=== PATIENT | female | born 1975 | race Hispanic/Latino ===

== ENCOUNTER → 2023-07-01 | Emergency (ER) | payer SELFPAY ==
[~2023-07-01] MED LIST: CEFTRIAXONE 1000 MG/VIAL ONE; LORazepam 2 MG/ML VIAL ONE; MORPHINE 4 MG/ML SYR ONE; NA CHLORIDE 0.9% 1,000 ML ONE; PROMETHAZINE INJ 25 MG/ML AMP ONE; dexAMETHasone 10 MG/ML VIAL ONE
[2023-07-01 09:29] LABS: SARS-CoV-2 Antigen CONTROL BLUE LINE VIS/BG OK; SARS-CoV-2 Antigen Rapid Res Positive (Negative)
[2023-07-01 09:34] LABS: Absolute Lymphocytes (CBC) 1.1 K/uL (0.7-4.9); Absolute Monocytes 0.8 K/uL (0.1-1.3); Absolute Neutrophil 2.3 K/uL (1.8-8.0); Basophils % 0.5 % (0-1.3); Eosinophils % 0.6 % (0-4.4); Hematocrit 33.3 % (36.0-45.0); Hemoglobin 11.5 g/dL (12.0-15.0); Lymphocytes % 25.1 % (15.3-44.8); MCH 31.2 pg (27.0-35.0); MCHC 34.6 g/dL (32.0-36.0); MCV 90.3 fL (80-100); Monocytes % 19.2 % (3.3-12.3); Neutrophils % 54.6 % (41.7-73.7); Nucleated Red Blood Cells % 0.1 % (0-0); Platelets 257 thou/uL (152-406); RBC Red Blood Cell Count 3.68 M/uL (3.86-4.86); Red Cell Distribution Width 13.2 % (12.1-15.2)
[2023-07-01 09:46] LABS: Anion Gap 7.9 mEq/L (5.0-15.0); Potassium 3.9 mEq/L (3.5-5.1)
--- NOTE | 2023-07-01 09:59 | RAD REPORT ---
EXAM DESCRIPTION: RAD - Shoulder Right 2 View - 07/01/2023 9:47 am CLINICAL HISTORY: anterior dislocation COMPARISON: Shoulder Right 2 View dated 05/23/2010 FINDINGS/IMPRESSION: No acute fracture. No malalignment. No significant focal degenerative changes. Right shoulder arthroplasty .
--- NOTE | 2023-07-01 10:47 | RAD REPORT ---
EXAM DESCRIPTION: CT - Soft Tissue Neck W/Contr CLINICAL HISTORY: Swelling;Sore throat COMPARISON: No comparisons TECHNIQUE All CT scans are performed using dose optimization technique as appropriate and may includ e automated exposure control or mA/KV adjustment according to patient size. FINDINGS: Nasopharyngeal tissues are normal in appearance. Fossa Rosenmller are normal. 9 mm x 7 mm small right peritonsillar abscess. Tonsillar hypertrophy. No significant airway narrowing . Tongue base structures are normal. Epiglottis and aryepiglottic folds are normal. Piriform sinuses are well aerated. The vocal cords are normal in appearance. Salivary glands are normal in appearance. Upper lung anthony are clear. Included intracranial contents are unremarkable. Right shoulder arthroplasty. Bilateral breast prostheses. IMPRESSION: Small right peritonsillar abscess measuring under 1 cm. No significant airway narrowing.
--- NOTE | 2023-07-01 11:16 | EDPHYS ---
Physician Documentation [facility] Name: Zaida Enrique Age: 48 yrs Sex: Female : 1975 Arrival Date: 07/01/2023 Time: 08:11 Bed 7 Private MD: ED Physician Mushtaq Kelly HPI: 06/30 08:36 This 48 yrs old Female presents to ER via Ambulatory with complaints of Sore sb4 Throat. 08:36 The patient presents with sore throat. Patient presents with a sore throat x 2 weeks. sb4 She states that she does get tonsillitis recurrently and has been trying to manage it at home but is just getting worse. She states that now it is painful to open her mouth and her whole body hurts. She reports a subjective 105 fever. States taking Tylenol and Motrin without any relief in symptoms. 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 - Social history:: Smoking status: Patient denies any tobacco usage or history of. ROS: 08:36 Eyes: Negative for injury, pain, redness, and discharge, sb4 08:36 Constitutional: Positive for body aches, fever, 08:36 ENT: Positive for sore throat, 08:36 All other systems are negative, Exam: 08:36 Head/Face: Normocephalic, atraumatic. Eyes: Extra-ocular motions intact. Periorbital sb4 areas with no swelling, redness, or edema. Skin: Warm, dry with normal turgor. Normal color with no rashes, no lesions, and no evidence of cellulitis. MS/ Extremity: Pulses equal, no cyanosis. Neurovascular intact. Full, normal range of motion. Neuro: Awake and alert, GCS 15, oriented to person, place, time, and situation. Motor strength 5/5 in all extremities. Sensory grossly intact. 08:36 Constitutional: The patient appears alert, awake, obviously ill, 08:36 ENT: Posterior pharynx: Airway: normal, no evidence of obstruction, Tonsils: bilaterally enlarged, with erythema, no exudate, no ulcerations, Uvula: normal, 08:36 Neck: External neck: tenderness, of the right sternocleidomastoid and left sternocleidomastoid, Lymph nodes: lymphadenopathy is appreciated, anterior cervical nodes, Vital Signs: 08:31 BP 109 / 63; Pulse 99; Resp 18; Temp 98.5; Pulse Ox 98% on R/A; iw 11:13 BP 112 / 68; Pulse 88; Resp 15; Temp 98; Pulse Ox 99% ; ko1 MDM: 08:29 Patient medically screened. sb4 08:36 Differential diagnosis: epiglottitis, group A strep tonsillitis, influenza, laryngitis, sb4 peritonsillar abscess pharyngitis, tonsillitis. 09:40 ED course: [facility] patient yelling in her room. RN went in and found her on the floor. sb4 Patient states that she got nauseated, tried to get up, tripped on the IV tubing and fell onto her right shoulder. Anterior dislocation noted to right shoulder. Patient states that she has had a prior replacement and has had dislocations a few times before. Will obtain x-ray, consent for conscious sedation, and reduce shoulder. 10:11 ED course: xray does not reveal any dislocation of shoulder. patient pain out of sb4 proportion, very emotional. 11:14 Data reviewed: vital signs, nurses notes, lab test result(s), radiologic studies, I sb4 have discussed the patient's presentation/case with the attending Emergency Department Physician; and as a result, I will discharge patient. Care significantly affected by the following Social Determinants of Health: Poor access to healthcare and/or lack of insurance. Counseling: I had a detailed discussion with the patient and/or guardian regarding the historical points, exam findings, and any diagnostic results supporting the discharge/admit diagnosis, lab results, radiology results, the need for outpatient follow up, an ENT specialist, to return to the emergency department if symptoms worsen or persist or if there are any questions or concerns that arise at home. 11:29 ED course: patient visualized pushing open door with right arm. sb4 06/30 08:35 Order name: Strep; Complete Time: 09:34 sb4 06/30 08:35 Order name: Throat Culture sb4 06/30 08:35 Order name: SARS RAPID; Complete Time: 09:34 sb4 06/30 08:35 Order name: Flu; Complete Time: 09:34 sb4 06/30 08:35 Order name: CBC with Diff; Complete Time: 09:36 sb4 06/30 08:35 Order name: BMP; Complete Time: 09:46 sb4 06/30 08:35 Order name: Soft Tissue Neck W/Contr CT; Complete Time: 10:48 sb4 06/30 09:34 Order name: Shoulder Right (2 View) XRAY; Complete Time: 10:00 sb4 06/30 08:35 Order name: IV Start; Complete Time: 09:53 sb4 06/30 09:37 Order name: Misc. Order: prep for conscious sedation; Complete Time: 10:58 sb4 Administered Medications: 09:01 CANCELLED (Physician Discretion): viscous lidocaineliquid (4 %) 5 ml Mucous Membrane sb4 once 09:27 Drug: NS 0.9% IV 1000 ml IV at 1 bolus Per protocol; 1000 mL bolus Route: IV; Rate: 1 ll1 bolus; Site: Other; 11:15 Follow up: Response: No adverse reaction; IV Status: Completed infusion; IV Intake: ko1 1000ml 09:52 Drug: Rocephin IV 1 grams IV at calculated rate once; Given slow IV push per pharmacy ko1 instructions Route: IV; Rate: calculated rate; Site: Other; 10:17 Follow up: Response: No adverse reaction; IV Status: Completed infusion; IV Intake: [id number] 09:53 Drug: morphine IVP or IV 4 mg IVP once over 4 mins Route: IVP; Infused Over: 4 mins; ko1 Site: Other; 10:16 Follow up: Response: No adverse reaction; Pain is decreased ko1 09:53 Drug: Promethazine IVP 12.5 mg IVP once Route: IVP; Site: Other; ko1 10:16 Follow up: Response: No adverse reaction; Nausea is decreased ko1 10:11 Drug: Ativan IVP 1 mg IVP once Route: IVP; Site: Other; ko1 10:55 Follow up: Response: No adverse reaction; Anxiety decreased ko1 11:18 Drug: Decadron - Dexamethasone IVP 10 mg IVP once Route: IVP; Site: Other; ko1 11:30 Follow up: Response: No adverse reaction ko1 Disposition: 11:23 I was immediately available on-site in the Emergency Department for consultation in the ms3 care of the patient. Disposition Summary: 07/01/23 11:15 Discharge Ordered Notes: Location: Home sb4 Problem: new sb4 Symptoms: have improved sb4 Condition: Stable sb4 Diagnosis - Peritonsillar abscess sb4 - Streptococcal tonsillitis sb4 - SARS-associated coronavirus as the cause of diseases classified elsewhere sb4 Followup: sb4 - With: Nicole Guerrero MD - When: 1 week - Reason: Recheck today's complaints, Re-evaluation by your physician Discharge Instructions: - Discharge Summary Sheet ko1 - Strep Throat, Adult, [id number] sb4 - Peritonsillar Abscess, [id number] sb4 Forms: - Work release form ko1 - Thank You Letter sb4 - Antibiotic Education sb4 - Patient Portal Instructions sb4 - Leadership Thank You Letter sb4 Prescriptions: - Lidocaine Viscous 2 % Mucous Membrane solution - apply 10 milliliter MUCOUS MEMBRANE route every 3 hours; 200 milliliter; sb4 Refills: 0, Product Selection Permitted - Clindamycin HCl 300 mg Oral Capsule - take 1 capsule ORAL route every 6 hours for 10 days; 40 capsule; Refills: 0, sb4 Product Selection Permitted - Medrol (Nir) 4 mg Oral Tablets, Dose Pack - take 1 tablet ORAL route as directed - follow package instructions; 1 packet; sb4 Refills: 0, Product Selection Permitted Signatures: Dispatcher [employer] Stefani Teran RN RN Luke Poole RN RN 1 Mushtaq Kelly DO DO ms3 Irma Miguel RN RN ko1 Ijeoma Rhodes PA-C PACitlalli sb4 Corrections: (The following items were deleted from the chart) 09:01 08:35 Viscous Lidocaine Mucous Membrane Liquid (4 %) 5 ml Mucous Membrane once ordered. sb4 sb4
--- NOTE | 2023-07-01 11:16 | ER ---
Nurse's Notes [facility] Name: Zaida Enrique Age: 48 yrs Sex: Female : 1975 Arrival Date: 07/01/2023 Time: 08:11 Bed 7 Private MD: Diagnosis: Peritonsillar abscess;Streptococcal tonsillitis;SARS-associated coronavirus as the cause of diseases classified elsewhere Presentation: 06/30 08:31 Chief complaint: Patient states: sore throat, fever. body aches X 2 weeks. Coronavirus iw screen: Client presents with at least one sign or symptom that may indicate coronavirus-19. Ebola Screen: Patient negative for fever greater than or equal to 101.5 degrees Fahrenheit, and additional compatible Ebola Virus Disease symptoms Patient denies exposure to infectious person. Patient denies travel to an Ebola-affected area in the 21 days before illness onset. No symptoms or risks identified at this time. Initial Sepsis Screen: Does the patient meet any 2 criteria? HR > 90 bpm. Does the patient have a suspected source of infection? No. Patient's initial sepsis screen is negative. Risk Assessment: Do you want to hurt yourself or someone else? Patient reports no desire to harm self or others. Onset of symptoms was June 17, 2023. 08:31 Method Of Arrival: Ambulatory iw 08:31 Acuity: ALESIA 3 iw Triage Assessment: 08:33 General: Appears uncomfortable, Behavior is cooperative. Pain: Complains of pain in iw throat. EENT: Reports pain when swallowing. 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 - Social history:: Smoking status: Patient denies any tobacco usage or history of. Screenin:35 [facility] ED Fall Risk Assessment (Adult) History of falling in the last 3 months, ko1 including since admission No falls in past 3 months (0 pts) Confusion or Disorientation No (0 pts) Intoxicated or Sedated No (0 pts) Impaired Gait No (0 pts) Mobility Assist Device Used No (0 pt) Altered Elimination No (0 pt) Score/Fall Risk Level 0 - 2 = Low Risk Oriented to surroundings, Maintained a safe environment, Educated pt \T\ family on fall prevention, incl call for assistance when getting out of bed, Assessed \T\ reinforced patient's understanding of fall precautions, Provided non-skid footwear, Hourly rounding (assess needs \T\ fall precautionary measures) done, Used ambulatory aids as needed (educated on \T\ assisted with), Used gait belt as appropriate. Abuse screen: Denies threats or abuse. Denies injuries from another. Nutritional screening: No deficits noted. Tuberculosis screening: No symptoms or risk factors identified. Assessment: 09:00 General: Appears distressed, Behavior is anxious, restless. Pain: Complains of pain in ko1 sore throat. Neuro: No deficits noted. Cardiovascular: No deficits noted. Respiratory: Airway is patent Trachea midline Respiratory effort is even, unlabored, Respiratory pattern is regular, symmetrical, Breath sounds are clear bilaterally. GI: No deficits noted. : No deficits noted. EENT: Throat is reddened. Derm: No deficits noted. Musculoskeletal: No deficits noted. 09:35 Reassessment: No changes from previously documented assessment. Patient and/or family ll1 updated on plan of care and expected duration. Pain level reassessed. Patient is alert, oriented x 3, equal unlabored respirations, skin warm/dry/pink. 10:35 Reassessment: Patient appears in no apparent distress at this time. No changes from ko1 previously documented assessment. Patient and/or family updated on plan of care and expected duration. Pain level reassessed. Patient is alert, oriented x 3, equal unlabored respirations, skin warm/dry/pink. 10:35 Reassessment: Patient appears in no apparent distress at this time. No changes from ko1 previously documented assessment. Patient and/or family updated on plan of care and expected duration. Pain level reassessed. Patient is alert, oriented x 3, equal unlabored respirations, skin warm/dry/pink. Vital Signs: 08:31 BP 109 / 63; Pulse 99; Resp 18; Temp 98.5; Pulse Ox 98% on R/A; iw 11:13 BP 112 / 68; Pulse 88; Resp 15; Temp 98; Pulse Ox 99% ; ko1 ED Course: 08:16 Patient arrived in ED. mr 08:17 Ijeoma Rhodes PA-C is PHCP. sb4 08:17 Mushtaq Kelly DO is Attending Physician. sb4 08:32 Triage completed. iw 08:33 Arm band placed on. iw 08:59 Irma Miguel, RN is Primary Nurse. ko1 08:59 Flu Sent. ko1 08:59 SARS RAPID Sent. ko1 08:59 Throat Culture Sent. ko1 08:59 Strep Sent. ko1 09:18 Missed attempt(s): 22 gauge in right wrist. Bleeding controlled, band aid applied, iw catheter tip intact. 09:22 Initial lab(s) drawn, by me, sent to lab. Missed attempt(s): 22 gauge in left foot. ll1 09:25 Inserted saline lock: 22 gauge in right ,using aseptic technique. foot Blood collected. ll1 09:35 Warm blanket given. ll1 09:35 Patient has correct armband on for positive identification. Allergy band placed. Placed ko1 in gown. Bed in low position. Call light in reach. Side rails up X 1. Client placed on continuous cardiac and pulse oximetry monitoring. NIBP monitoring applied. engine monitor on. Assisted to bathroom. 09:49 Shoulder Right (2 View) XRAY In Process Unspecified. EDMS 10:00 Door closed. Noise minimized. Warm blanket given. Verbal reassurance given. Assisted to ko1 bathroom. 10:26 Soft Tissue Neck W/Contr CT In Process Unspecified. EDMS 11:11 Provided Education on: NA. ko1 11:11 No provider procedures requiring assistance completed. IV discontinued, intact, ko1 bleeding controlled, No redness/swelling at site. Pressure dressing applied. 11:15 Nicole Guerrero MD is Referral Physician. sb4 Administered Medications: 09:01 CANCELLED (Physician Discretion): viscous lidocaineliquid (4 %) 5 ml Mucous Membrane sb4 once 09:27 Drug: NS 0.9% IV 1000 ml IV at 1 bolus Per protocol; 1000 mL bolus Route: IV; Rate: 1 ll1 bolus; Site: Other; 11:15 Follow up: Response: No adverse reaction; IV Status: Completed infusion; IV Intake: ko1 1000ml 09:52 Drug: Rocephin IV 1 grams IV at calculated rate once; Given slow IV push per pharmacy ko1 instructions Route: IV; Rate: calculated rate; Site: Other; 10:17 Follow up: Response: No adverse reaction; IV Status: Completed infusion; IV Intake: [id number] 09:53 Drug: morphine IVP or IV 4 mg IVP once over 4 mins Route: IVP; Infused Over: 4 mins; ko1 Site: Other; 10:16 Follow up: Response: No adverse reaction; Pain is decreased ko1 09:53 Drug: Promethazine IVP 12.5 mg IVP once Route: IVP; Site: Other; ko1 10:16 Follow up: Response: No adverse reaction; Nausea is decreased ko1 10:11 Drug: Ativan IVP 1 mg IVP once Route: IVP; Site: Other; ko1 10:55 Follow up: Response: No adverse reaction; Anxiety decreased ko1 11:18 Drug: Decadron - Dexamethasone IVP 10 mg IVP once Route: IVP; Site: Other; ko1 11:30 Follow up: Response: No adverse reaction ko1 Medication: 11:11 VIS not applicable for this client. ko1 Intake: 10:17 IV: 20ml; Total: 20ml. ko1 11:15 IV: 1000ml; Total: 1020ml. ko1 Outcome: 11:15 Discharge ordered by . sb4 11:30 Discharged to home ambulatory, ko1 11:30 Condition: improved 11:30 Discharge instructions given to patient, Instructed on discharge instructions, follow up and referral plans. medication usage, Demonstrated understanding of instructions, follow-up care, medications, Prescriptions given X 3, 11:31 Patient left the ED. ko1 Signatures: Dispatcher [employer] EDWV FazalDomonique, Reg Reg mr Stefani Loaiza, RN Luke Holden RN RN ll1 Irma Miguel RN RN ko1 Ijeoma Rhodes PA-C PACitlalli sb4 Corrections: (The following items were deleted from the chart) : 10:19 General: Appears distressed, Behavior is anxious, restless, ko1 ko1 11:11 10:19 Pain: Complains of pain in sore throat ko1 ko1 11:11 10:19 Neuro: No deficits noted. ko1 ko1 11:11 10:19 Cardiovascular: No deficits noted. ko1 ko1 10:19 Respiratory: Airway is patent Trachea midline Respiratory effort is even, ko1 unlabored, Respiratory pattern is regular, symmetrical, Breath sounds are clear bilaterally. ko1 10: GI: No deficits noted. ko1 ko1 10: : No deficits noted. ko1 ko1 10: EENT: Throat is reddened ko1 ko1 10:19 Derm: No deficits noted. ko1 ko1 10: Musculoskeletal: No deficits noted. ko1 ko1 10: General: Appears distressed, Behavior is anxious, restless, ko1 ko1
[2023-07-01 12:04] VITALS: BP 112/68; TEMP 98; O2SAT 99
== END ==
LOC: ER 08:11
DX: U07.1 COVID-19 (principal); J03.00 Acute streptococcal tonsillitis, unspecified
CPT/HCPCS: 36415; 70491; 80048; 85025; 87070; 87081; 87804; 87811; 96361; 96365; 96375; 99285; J0696; J1100; J2550; J7030; Q9967